=== PATIENT | female | born 1980 | race Caucasian/White ===

== ENCOUNTER 2018-02-13 20:11 | Emergency (ER) | payer OTHER ==
[~2018-02-13] VITALS: Ht 170.2 cm; Wt 82.6 kg
[~2018-02-13 20:11] MED LIST: BIRTHCONTROL; NOHOMEMEDICATIONS; PREDNISONE 20 M20 M1 PO; PROMETHAZINE12.5 M1 PO; PROTONIX 20 MG20 M1 PO; ZESTRIL5 MG PO
[2018-02-13] MEDS ORDERED: NYSTATIN15 G3 TOP (20:33)
[2018-02-13 20:34] VITALS: BP 128/73
[2018-02-13] MEDS ORDERED: LISINOPRIL10 MG PO (20:36)
[2018-02-13] MEDS ORDERED: FISH OIL 1,001000 M2 PO (20:36)
== END 2018-02-13 20:43 | disposition home or self-care (01) ==
LOC: M.ERS 20:11
DX: B37.3 Candidiasis of vulva and vagina (principal); G62.9 Polyneuropathy, unspecified; Z87.440 Personal history of urinary (tract) infections

== ENCOUNTER 2018-11-22 19:02 | Emergency (ER) | payer OTHER ==
[~2018-11-22] VITALS: Ht 170.2 cm; Wt 83.0 kg
[~2018-11-22 19:02] MED LIST changes: +FISH OIL 1,001000 M2 PO; +LISINOPRIL10 MG PO; +NYSTATIN15 G3 TOP
[2018-11-22 20:30] LABS: ABSOLUTE BASOPHILS 0.1 thou/uL (0.0-0.2); ABSOLUTE EOSINOPHILS 0.1 thou/uL (0.0-0.7); ABSOLUTE LYMPHOCYTES 2.1 thou/uL (0.8-5.3); ABSOLUTE MONOCYTES 0.8 thou/uL (0.0-1.2); ABSOLUTE NEUTROPHILS 6.1 thou/uL (1.6-8.1); BASOPHILS 0.8 %; EOSINOPHILS 0.8 %; HEMATOCRIT 38.1 % (37.0-47.0); HEMOGLOBIN 12.6 gm/dL (12.0-15.0); LYMPHOCYTES 22.6 %; MCHC 33.1 g/dL (28.0-37.0); MCV 87.6 fL (80.0-100.0); MONOCYTES 9.1 %; MPV 9.9 fl. (7.2-11.1); NUCLEATED RBCS 0 /100WBC; PLATELET COUNT* 246 thou/uL (150-400); POLYS 66.7 %; RBC 4.35 mil/uL (4.20-5.00); RDW-CV 15.4 % (10.5-14.5); WBC 9.2 thou/uL (4.0-11.0)
[2018-11-22 20:56] LABS: ALBUMIN 3.7 g/dL (3.4-5.0); CALCIUM 8.6 mg/dL (8.5-10.1); CREATININE 0.8 mg/dL (0.6-1.3); POTASSIUM 4.5 mmol/L (3.5-5.1); TOTAL BILIRUBIN 0.2 mg/dL (<0.1-1.0); TOTAL PROTEIN 7.3 g/dL (6.4-8.2)
[2018-11-22] MEDS ORDERED: KEFLEX500 M1 PO (21:37)
[2018-11-22] MEDS ORDERED: BACTRIM DS TAB1 EACH PO (21:37)
[2018-11-22 21:48] VITALS: BP 123/90
== END 2018-11-22 21:51 | disposition home or self-care (01) ==
LOC: M.ERS 19:02
PROVIDERS: Nurse Practitioner Family
DX: S61.231A Puncture wound without foreign body of left index finger without damage to nail, initial encounter (principal); L03.012 Cellulitis of left finger; G62.9 Polyneuropathy, unspecified; W45.8XXA Other foreign body or object entering through skin, initial encounter; Y93.89 Activity, other specified; Y92.89 Other specified places as the place of occurrence of the external cause; Y99.8 Other external cause status

== ENCOUNTER 2018-11-24 13:50 | Emergency (ER) | payer OTHER ==
[~2018-11-24] VITALS: Ht 170.2 cm; Wt 82.6 kg
[~2018-11-24 13:50] MED LIST changes: +BACTRIM DS TAB1 EACH PO; +KEFLEX500 M1 PO
[2018-11-24 13:55] VITALS: BP 126/73
== END 2018-11-24 14:20 | disposition home or self-care (01) ==
LOC: M.ERS 13:50
DX: L03.012 Cellulitis of left finger (principal); G62.9 Polyneuropathy, unspecified

== ENCOUNTER → 2021-01-03 | Outpatient (CLI) | payer OTHER | LOC: M.RAD 08:54 | PROVIDERS: ATTEND Family Medicine | DX: Z12.31 Encounter for screening mammogram for malignant neoplasm of breast (principal) ==